=== PATIENT | female | born 1970 | race Caucasian/White ===

== ENCOUNTER 2018-03-29 15:25 | Outpatient (CLI) | payer OTHER ==
--- NOTE | 2018-03-30 15:57 | MMO ---
BILATERAL MAMMOGARMS: History: Screening mammography. Comparison: None available. Baseline study. FINDINGS: Scattered fibroglandular densities. No dominant mass or suspicious calcifications. This study is inte rpreted with the assistance of computer aided detection. IMPRESSION: BIRADS category 1 - negative. Suggest routine follow up. POS: YRN
== END 2018-03-29 15:26 | disposition home or self-care (01) ==
LOC: SCSMAMMO 15:25 → EDSTATUS 15:30
PROVIDERS: ATTEND Internal Medicine
DX: Z12.31 Encounter for screening mammogram for malignant neoplasm of breast (principal)
CPT/HCPCS: 77067

== ENCOUNTER 2019-03-30 14:56 | Outpatient (CLI) | payer OTHER ==
--- NOTE | 2019-03-30 15:39 | MMO ---
Bilateral MAMMO Bilat Screen [facility]. CLINICAL HISTORY: Patient is 49 years old and is seen for screening. VIEWS: The views performed were: bilateral craniocaudal with tomosynthesis and bilateral mediolateral oblique with tomosynthesis. FILMS COMPARED: The present examination has been compared to a prior imaging study performed at [facility] on 03/29/2018. This study has been interpreted with the assistance of computer-aided detection. MAMMOGRAM FINDINGS: The breasts are heterogeneously dense, which could obscure a lesion on mammography. There is an oval mass measuring 15 millimeters with obscured margins seen in the outer region of the left breast. In the right breast, there are no suspicious masses, calcifications or areas of architectural distortion. IMPRESSION: MASS IN THE LEFT BREAST REQUIRES ADDITIONAL EVALUATION. RECOMMEND DIAGNOSTIC MAMMOGRAM. ULTRASOUND MAY ALSO PROVE USEFUL AT RECALL. THE RESULTS OF THIS EXAM WERE SENT TO THE PATIENT. ACR BI-RADS Category 0 - Incomplete: Need additional imaging evaluation. [facility] will notify the patient of the need for additional imaging services. MAMMOGRAPHY NOTE: 1. A negative mammogram report should not delay a biopsy if a dominant of clinically suspicious mass is present. 2. Approximately 10% to 15% of breast cancers are not detected by mammography. 3. Adenosis and dense breasts may obscure an underlying neoplasm. Reported by: AMISHA BAL MD Electonically Signed: [id number]
== END 2019-03-30 14:57 | disposition home or self-care (01) ==
LOC: BICMAMMO 14:56
PROVIDERS: ATTEND Internal Medicine
DX: Z12.31 Encounter for screening mammogram for malignant neoplasm of breast (principal); N63.20 Unspecified lump in the left breast, unspecified quadrant
CPT/HCPCS: 77063; 77067

== ENCOUNTER 2019-04-05 15:06 | Outpatient (CLI) | payer OTHER ==
--- NOTE | 2019-04-05 17:44 | ULT ---
LIMITED LEFT BREAST ULTRASOUND: 04/05/19 PROVIDED CLINICAL HISTORY: Abnormal mammogram findings. Limited sonographic interrogation of the left breast in the 1 o'clock position was performed in the r egion of mammographic concern. There is an oval, smoothly marginated hypoechoic mass noted about 1.1 cm present in the region of mammographic concern. No shadowing or other suspicious findings. IMPRESSION: Circumscribed oval mass corresponds to the mammographic abnormality and demonstrates ultrasound findi ngs favoring fibroadenoma. The patient desires ultrasound guided biopsy. POS: OFF
--- NOTE | 2019-04-12 13:25 | MMO ---
Left Breast MAMMO Unilat Diag [facility]. CLINICAL HISTORY: Patient is 49 years old and is seen for diagnostic exam. The patient has no family history of breast cancer. The patient has no personal history of cancer. VIEWS: The views performed were: right craniocaudal spot compression with tomosynthesis and right mediolateral spot compression with tomosynthesis. FILMS COMPARED: The present examination has been compared to prior imaging studies performed at [facility] on 03/29/2018, 03/30/2019 and 04/05/2019. This study has been interpreted with the assistance of computer-aided detection. MAMMOGRAM FINDINGS: The breast is heterogeneously dense, which could obscure a lesion on mammography. There is an oval mass measuring 14 millimeters with circumscribed margins seen in the upper-outer region of the left breast. Ultrasound demonstrates this to be a solid mass, with findings favoring fibroadenoma. IMPRESSION: MASS IN THE LEFT BREAST IS PROBABLY BENIGN. THE PATIENT DESIRES BIOPSY. THE RESULTS OF THIS EXAM WERE SENT TO THE PATIENT. ACR BI-RADS Category 3 - Probably benign finding - short interval follow-up suggested. [facility] will notify the patient of the need for additional imaging services. MAMMOGRAPHY NOTE: 1. A negative mammogram report should not delay a biopsy if a dominant of clinically suspicious mass is present. 2. Approximately 10% to 15% of breast cancers are not detected by mammography. 3. Adenosis and dense breasts may obscure an underlying neoplasm. Reported by: AMISHA BAL MD Electonically Signed: [id number]
== END 2019-04-05 15:07 | disposition home or self-care (01) ==
LOC: BICMAMMO 15:06
PROVIDERS: ATTEND Internal Medicine
DX: N63.21 Unspecified lump in the left breast, upper outer quadrant (principal)
CPT/HCPCS: G0279

== ENCOUNTER → 2019-04-12 | Day surgery (SDC) | payer OTHER ==
--- NOTE | 2019-04-12 14:00 | MMO ---
Left Breast MAMMO Unilat Diag [facility]. CLINICAL HISTORY: Patient is 49 years old and is seen for breast biopsy. The patient has no family history of breast cancer. The patient has no personal history of cancer. The patient has a history of left Ultrasound Guided Core Biopsy in March,. VIEWS: The views performed were: left craniocaudal and left mediolateral oblique. FILMS COMPARED: The present examination has been compared to prior imaging studies performed at [facility] on 03/29/2018, 03/30/2019 and 04/05/2019. This study has been interpreted with the assistance of computer-aided detection. MAMMOGRAM FINDINGS: There is a biopsy clip seen in the upper-outer region of the left breast. IMPRESSION: BIOPSY CLIP IN THE LEFT BREAST IS CONFIRMED UTILIZING POST PROCEDURE MAMMOGRAM. THE RESULTS OF THIS EXAM WERE SENT TO THE PATIENT. MAMMOGRAPHY NOTE: 1. A negative mammogram report should not delay a biopsy if a dominant of clinically suspicious mass is present. 2. Approximately 10% to 15% of breast cancers are not detected by mammography. 3. Adenosis and dense breasts may obscure an underlying neoplasm. Reported by: ALEXIA FELICIANO MD Electonically Signed: [id number]
--- NOTE | 2019-04-12 14:19 | ULT ---
Ultrasound-guided core biopsy left breast mass: 04/12/2019 HISTORY: Hypoechoic solid mass at the 1:00 position of the left breast FINDINGS: Informed consent obtained prior to the procedure. Preprocedural imaging demonstrates a 1.0 x 1.1 x 0.7 cm oval hypoechoic lesion at the 1:00 position o f the left breast. Skin overlying this lesion was prepped and draped in normal sterile fashion and anesthetized with 1% buffered lidocaine. Secondary to the posterior/deep location a horizontal biopsy path was chosen. Initially, a 14-gauge c ore biopsy was obtained. Then, in order to utilize a longer needle, a 12-gauge biopsy needle was subsequently used. 2 12-gauge passes were obtained as well. A postprocedural clip was placed immediately adjacent to the lesion and a proper location of the post biopsy clip was confirmed with postprocedural mammography. IMPRESSION: Successful ultrasound-guided core biopsy of left breast mass as detailed above.
== END ==
LOC: BICULT 12:19
PROVIDERS: ATTEND Internal Medicine
PROC: 0H9U0ZX Drainage of Left Breast, Open Approach, Diagnostic (ICD-10-PCS; principal; 2019-04-12)
DX: D24.2 Benign neoplasm of left breast (principal)
CPT/HCPCS: 19083; 88305

== ENCOUNTER 2020-03-31 08:34 | Outpatient (CLI) | payer OTHER ==
--- NOTE | 2020-03-31 09:18 | MMO ---
Bilateral MAMMO Bilat Screen [facility]. CLINICAL HISTORY: Patient is 50 years old and is seen for screening. The patient has no family history of breast cancer. The patient has no personal history of cancer. The patient has a history of left Ultrasound Guided Core Biopsy in March,. VIEWS: The views performed were: bilateral craniocaudal with tomosynthesis and bilateral mediolateral oblique with tomosynthesis. FILMS COMPARED: The present examination has been compared to prior imaging studies performed at [facility] on 03/30/2019, 04/05/2019 and 04/12/2019. This study has been interpreted with the assistance of computer-aided detection. MAMMOGRAM FINDINGS: The breasts are heterogeneously dense, which could obscure a lesion on mammography. Left biopsy clip. Benign calcifications are noted bilaterally. There are no suspicious masses, suspicious calcifications, or new areas of architectural distortion. IMPRESSION: THERE IS NO MAMMOGRAPHIC EVIDENCE OF MALIGNANCY. A ROUTINE FOLLOW-UP MAMMOGRAM IN 1 YEAR IS RECOMMENDED. THE RESULTS OF THIS EXAM WERE SENT TO THE PATIENT. ACR BI-RADS Category 2 - Benign finding MAMMOGRAPHY NOTE: 1. A negative mammogram report should not delay a biopsy if a dominant of clinically suspicious mass is present. 2. Approximately 10% to 15% of breast cancers are not detected by mammography. 3. Adenosis and dense breasts may obscure an underlying neoplasm. Reported by: ALEXIA FELICIANO MD Electonically Signed: [id number]
== END 2020-03-31 08:35 | disposition home or self-care (01) ==
LOC: BICMAMMO 08:34
PROVIDERS: ATTEND Internal Medicine
DX: Z12.31 Encounter for screening mammogram for malignant neoplasm of breast (principal)
CPT/HCPCS: 77063; 77067

== ENCOUNTER 2021-08-24 15:12 | Outpatient (CLI) | payer OTHER | END 2021-08-24 15:13 | disposition home or self-care (01) | LOC: BICMAMMO 15:12 | PROVIDERS: ATTEND Internal Medicine | DX: Z12.31 Encounter for screening mammogram for malignant neoplasm of breast (principal) | CPT/HCPCS: 77063; 77067 ==